=== PATIENT | male | born 1990 | race Caucasian/White ===

== ENCOUNTER → 2021-10-14 10:55 | Outpatient (CLI) | payer SELFPAY ==
[2021-10-14 14:23] LABS: Influenza Control Positive
[2021-10-14 20:43] LABS: SARS-CoV-2 RNA PCR Negative
== END ==
PROVIDERS: PCP Family Medicine; Visit Provider Family Medicine
DX: J06.9 Acute upper respiratory infection, unspecified (principal); Z20.822 Contact with and (suspected) exposure to COVID-19
CPT/HCPCS: 87804; C9803; U0003; U0005

== ENCOUNTER 2022-01-16 00:42 | Day surgery (SDC) | payer OTHER, SELFPAY ==
[2021-12-16 09:04] VITALS: BMI 34.7
[2022-01-04 14:42] VITALS: BMI 33.5
[2022-01-16 12:26] VITALS: BP 136/86; PULSE 78; RESP 16; TEMP 36.3; O2SAT 100; BMI 33.6
[2022-01-16] MEDS: LACTATED RINGERS 1,000 ML 150 ML IV CONT (12:33)
--- NOTE | 2022-01-16 12:37 | WPDGICN ---
Assessment and Plan Assessment and plan (1) Dysphagia: Code(s): R13.10 - Dysphagia, unspecified Status: Acute Assessment and Plan: EGD with possible biopsy or dilatation or cautery. GI Consult Note Consult date/time: 01/16/22 12:37 HPI: Red Mclaughlin is a 31 year old male With dysphagia for pills and solid food. Feels as though things are getting stuck in his mid esophagus. This is been going on for several months. He has had no weight loss Review of Systems Review of Systems: All systems reviewed & are unremarkable except as noted in HPI and below PMFSH Past Medical History Medical History Acute serous otitis media, right ear ADHD, predominantly inattentive type Anxiety BMI 35.0-35.9,adult Chronic anxiety Dysphagia Elevated blood pressure reading without diagnosis of hypertension Elevated liver enzymes (04/27/21) ALT slightly elevated at 48 with AST normal at 22 on 04/27/2021 IBS (irritable bowel syndrome) Irritable bowel syndrome with diarrhea Mixed hyperlipidemia Total cholesterol 234, triglycerides 279, HDL 29, LDL 159 on 04/27/2021 Obesity (BMI 30.0-34.9) Obstructive sleep apnea Otitis media of left ear Seasonal allergic rhinitis URI (upper respiratory infection) Vitamin B12 deficiency anemia (04/27/21) vitamin B12 slightly low at 316 with goal greater than 400 on 04/27/2021 Surgical History Surgical History History of lumbar fusion (~2013) Family History Family History Mother IBS (irritable bowel syndrome) Father Diabetes mellitus Hypertension Acid reflux Grandparent Hypertension Grandparent Diabetes mellitus Heart disease Hypertension Grandparent Diabetes mellitus Heart disease Grandparent Hypertension Afib Sibling Asthma Social History Social History Smoking status: Never smoker Alcohol intake: never Substance use: never Living arrangements: alone Gender identity (if verbalized by the patient): Male Sexual Orientation (if Verbalized by the Patient): Straight or Heterosexual Spiritual care concerns: No Agree to blood products: Yes Meds Home Medications and Allergies Home Medications Medication Instructions Recorded Confirmed Type escitalopram oxalate 10 mg tablet 10 mg PO DAILY #30 tablet 07/12/21 01/16/22 Rx cetirizine 10 mg tablet 10 mg PO DAILY 10/21/21 01/16/22 History fluticasone propionate [Flonase 1 spray INTRANASAL BID PRN 01/04/22 01/16/22 History Allergy Relief] Allergies Allergy/AdvReac Type Severity Reaction Status Date / Time amoxicillin Allergy Rash Verified 01/16/22 12:25 cefixime [From Suprax] Allergy Rash Verified 01/16/22 12:25 sulfamethoxazole Allergy Rash Verified 01/16/22 12:25 [From Septra] trimethoprim [From Septra] Allergy Rash Verified 01/16/22 12:25 Vital Signs Vital Signs - 24 hr 01/16/22 12:26 Temperature 36.3 C L Pulse Rate 78 Respiratory Rate 16 Blood Pressure 136/86 Pulse Oximetry 100 Exam Const: General: alert Orientation/consciousness: patient oriented x3 Resp: Auscultation: clear to auscultation bilaterally Cardio: Rhythm: regular rhythm GI: GI Palp: Yes Soft to palpation and No Tenderness to palpation present (GI) Neuro: General: patient oriented x3
--- NOTE | 2022-01-16 12:42 | WPDANESEPPF ---
Anes - Initial Pre Proc Eval Procedure: Operation Date: 01/16/22 13:30 Proposed Procedures p Esophagogastroduodenoscopy - Rafiq Bragg MD Date/Time: 01/16/22 12:42 Surgeon: Rafiq Bragg MD Pre Op Diagnosis: dysphagia Patient Data Age: 31 Gender: M Height: 1.78 m Weight: 106.4 kg Last Vital Signs Temp 97.4 F L 01/16/22 12:26 Pulse 78 01/16/22 12:26 Resp 16 01/16/22 12:26 BP 136/86 01/16/22 12:26 Pulse Ox 100 01/16/22 12:26 Allergies Allergy/AdvReac Type Severity Reaction Status Date / Time amoxicillin Allergy Rash Verified 01/16/22 12:25 cefixime [From Suprax] Allergy Rash Verified 01/16/22 12:25 sulfamethoxazole Allergy Rash Verified 01/16/22 12:25 [From Septra] trimethoprim [From Septra] Allergy Rash Verified 01/16/22 12:25 Home Medications Medication Instructions Recorded Confirmed Type escitalopram oxalate 10 mg tablet 10 mg PO DAILY #30 tablet 07/12/21 01/16/22 Rx cetirizine 10 mg tablet 10 mg PO DAILY 10/21/21 01/16/22 History fluticasone propionate [Flonase 1 spray INTRANASAL BID PRN 01/04/22 01/16/22 History Allergy Relief] Patient hx anesthesia problems: none Family hx anesthesia problems: none Results Review: All pre-operative results and documents have been reviewed as part of the pre-operative evaluation. [facility] Past Medical History Medical History Acute serous otitis media, right ear ADHD, predominantly inattentive type Anxiety BMI 35.0-35.9,adult Chronic anxiety Dysphagia Elevated blood pressure reading without diagnosis of hypertension Elevated liver enzymes (04/27/21) ALT slightly elevated at 48 with AST normal at 22 on 04/27/2021 IBS (irritable bowel syndrome) Irritable bowel syndrome with diarrhea Mixed hyperlipidemia Total cholesterol 234, triglycerides 279, HDL 29, LDL 159 on 04/27/2021 Obesity (BMI 30.0-34.9) Obstructive sleep apnea Otitis media of left ear Seasonal allergic rhinitis URI (upper respiratory infection) Vitamin B12 deficiency anemia (04/27/21) vitamin B12 slightly low at 316 with goal greater than 400 on 04/27/2021 Surgical History Surgical History History of lumbar fusion (~2013) Family History Family History Mother IBS (irritable bowel syndrome) Father Diabetes mellitus Hypertension Acid reflux Grandparent Hypertension Grandparent Diabetes mellitus Heart disease Hypertension Grandparent Diabetes mellitus Heart disease Grandparent Hypertension Afib Sibling Asthma Social History Social History Smoking status: Never smoker Alcohol intake: never Substance use: never Living arrangements: alone Gender identity (if verbalized by the patient): Male Sexual Orientation (if Verbalized by the Patient): Straight or Heterosexual Spiritual care concerns: No Agree to blood products: Yes Anes - Eval Final PreProcedure Day of Procedure 01/16/22 12:42 Patient weight: obese Heart: regular rate and rhythm Airway: Mallampati scale class II Neurological: alert and oriented Last oral intake: >/= 8 hours ASA classification: III Emergent: no Anesthetic plan: proceed Anesthesia type and monitoring: general GIVS and standard monitoring Results Review: All pre-operative results and documents have been reviewed as part of the pre-operative evaluation. Informed Consent: The patient's anesthetic plan and its attendant risks and benefits were discussed with the patient/family/POA. Questions were solicited and answers provided to the satisfaction of the patient/family/POA.
[2022-01-16 13:38] VITALS: BP 108/75; PULSE 86; RESP 16; O2SAT 100
== END 2022-01-16 14:02 | disposition home or self-care (01) ==
PROVIDERS: PCP Family Medicine; Visit Provider Internal Medicine Gastroenterology
PROC: 0DJ08ZZ Inspection of Upper Intestinal Tract, Via Natural or Artificial Opening Endoscopic (ICD-10-PCS; CPT 43235; principal; 2022-01-16 13:30)
DX: K22.2 Esophageal obstruction (principal); F41.9 Anxiety disorder, unspecified; Z98.1 Arthrodesis status; E66.9 Obesity, unspecified; Z68.33 Body mass index [BMI] 33.0-33.9, adult
CPT/HCPCS: 43249; 88305; C1726; J2704; J7120

== ENCOUNTER 2022-04-03 01:58 | Day surgery (SDC) | payer OTHER, SELFPAY ==
[2022-03-23 10:46] VITALS: BMI 34.0
--- NOTE | 2022-04-03 11:47 | WPDANESEPPF ---
Anes - Initial Pre Proc Eval Procedure: Operation Date: 04/03/22 13:30 Proposed Procedures p Esophagogastroduodenoscopy - Rafiq Bragg MD Date/Time: 04/03/22 11:47 Surgeon: Rafiq Bragg MD Pre Op Diagnosis: eosinophilic esophagitis Patient Data Age: 31 Gender: M Height: 1.75 m Weight: 104.5 kg Allergies Allergy/AdvReac Type Severity Reaction Status Date / Time amoxicillin Allergy Rash Verified 04/03/22 12:13 cefixime [From Suprax] Allergy Rash Verified 04/03/22 12:13 sulfamethoxazole Allergy Rash Verified 04/03/22 12:13 [From Septra] trimethoprim [From Septra] Allergy Rash Verified 04/03/22 12:13 Home Medications Medication Instructions Recorded Confirmed Type escitalopram oxalate 10 mg tablet 10 mg PO DAILY #30 tabs 07/12/21 03/24/22 Rx (Lexapro) cetirizine 10 mg tablet 10 mg PO DAILY 10/21/21 03/24/22 History fluticasone propionate 50 1 spray intranasal BID PRN Allergy 01/04/22 03/24/22 History mcg/actuation nasal Symptoms spray,suspension (Flonase Allergy Relief) omeprazole 20 mg tablet,delayed 40 mg PO DAILY 01/17/22 03/24/22 History release buspirone 15 mg tablet 15 mg PO BID #60 tabs 02/02/22 03/24/22 Rx amitriptyline 10 mg tablet 10 mg PO QHS #30 tabs 02/09/22 03/24/22 Rx Patient hx anesthesia problems: none Family hx anesthesia problems: none Results Review: All pre-operative results and documents have been reviewed as part of the pre-operative evaluation. [facility] Past Medical History Medical History (Updated 04/03/22 @ 12:37 by Rafiq Bragg MD) Acute serous otitis media, right ear ADHD, predominantly inattentive type Anxiety Benign esophageal stricture (01/17/22) severe benign esophageal stricture at the [facility] on EGD on 01/17/2022, dilated BMI 35.0-35.9,adult Chronic anxiety Dysphagia Elevated blood pressure reading without diagnosis of hypertension Elevated liver enzymes (04/27/21) ALT slightly elevated at 48 with AST normal at 22 on 04/27/2021 GERD (gastroesophageal reflux disease) IBS (irritable bowel syndrome) Irritable bowel syndrome with diarrhea Mixed hyperlipidemia Total cholesterol 234, triglycerides 279, HDL 29, LDL 159 on 04/27/2021 Obesity (BMI 30.0-34.9) Obstructive sleep apnea Otitis media of left ear Seasonal allergic rhinitis URI (upper respiratory infection) Vitamin B12 deficiency anemia (04/27/21) vitamin B12 slightly low at 316 with goal greater than 400 on 04/27/2021 Surgical History Surgical History History of lumbar fusion (~2013) Family History Family History Mother IBS (irritable bowel syndrome) Father Diabetes mellitus Hypertension Acid reflux Grandparent Hypertension Grandparent Diabetes mellitus Heart disease Hypertension Grandparent Diabetes mellitus Heart disease Grandparent Hypertension Afib Sibling Asthma Social History Social History Smoking status: Never smoker Alcohol intake: never Substance use: never Substance use type: does not use Living arrangements: with family Gender identity (if verbalized by the patient): Male Sexual Orientation (if Verbalized by the Patient): Straight or Heterosexual Spiritual care concerns: No Agree to blood products: Yes Anes - Eval Final PreProcedure Day of Procedure 04/03/22 11:47 Patient weight: obese Heart: regular rate and rhythm Lungs: clear to auscultation Airway: Mallampati scale class II Neurological: alert and oriented Last oral intake: >/= 8 hours ASA classification: III Emergent: no Anesthetic plan: proceed Anesthesia type and monitoring: general GIVS and standard monitoring Results Review: All pre-operative results and documents have been reviewed as part of the pre-operative evaluation. Informed Consent: Th
[2022-04-03 12:15] VITALS: BP 114/78; PULSE 71; RESP 20; TEMP 36.4; O2SAT 100
[2022-04-03] MEDS: LACTATED RINGERS 1,000 ML 150 ML IV CONT (12:32)
--- NOTE | 2022-04-03 12:35 | PM.HPGS ---
History of Present Illness History of Present Illness Consent: Risks, benefits, and alternatives have been discussed and questions answered. Patient agrees to proceed with procedure. Chief complaint: eosinophilic esophagitis Narrative: Red Mclaughlin is a 31 year old male With had severe dysphagia and was found have a tight stricture at the gastroesophageal junction 8 weeks ago. I was able to dilated only up to 13.5 mm. He also has been found to have eosinophilic esophagitis, with 80 eosinophils per high-power field in the proximal esophagus and 70 more distally. he has been taking omeprazole 40 mg per day and is doing much better so far. Review of Systems Review of Systems: All systems reviewed & are unremarkable except as noted in HPI and below PMFSH Past Medical History Medical History Acute serous otitis media, right ear ADHD, predominantly inattentive type Anxiety Benign esophageal stricture (01/17/22) severe benign esophageal stricture at the [facility] on EGD on 01/17/2022, dilated BMI 35.0-35.9,adult Chronic anxiety Dysphagia Elevated blood pressure reading without diagnosis of hypertension Elevated liver enzymes (04/27/21) ALT slightly elevated at 48 with AST normal at 22 on 04/27/2021 GERD (gastroesophageal reflux disease) IBS (irritable bowel syndrome) Irritable bowel syndrome with diarrhea Mixed hyperlipidemia Total cholesterol 234, triglycerides 279, HDL 29, LDL 159 on 04/27/2021 Obesity (BMI 30.0-34.9) Obstructive sleep apnea Otitis media of left ear Seasonal allergic rhinitis URI (upper respiratory infection) Vitamin B12 deficiency anemia (04/27/21) vitamin B12 slightly low at 316 with goal greater than 400 on 04/27/2021 Surgical History Surgical History History of lumbar fusion (~2013) Family History Family History Mother IBS (irritable bowel syndrome) Father Diabetes mellitus Hypertension Acid reflux Grandparent Hypertension Grandparent Diabetes mellitus Heart disease Hypertension Grandparent Diabetes mellitus Heart disease Grandparent Hypertension Afib Sibling Asthma Social History Social History Smoking status: Never smoker Alcohol intake: never Substance use: never Substance use type: does not use Living arrangements: with family Gender identity (if verbalized by the patient): Male Sexual Orientation (if Verbalized by the Patient): Straight or Heterosexual Spiritual care concerns: No Agree to blood products: Yes Meds Home Medications and Allergies Home Medications Medication Instructions Recorded Confirmed Type escitalopram oxalate 10 mg tablet 10 mg PO DAILY #30 tabs 07/12/21 03/24/22 Rx (Lexapro) cetirizine 10 mg tablet 10 mg PO DAILY 10/21/21 03/24/22 History fluticasone propionate 50 1 spray intranasal BID PRN Allergy 01/04/22 03/24/22 History mcg/actuation nasal Symptoms spray,suspension (Flonase Allergy Relief) omeprazole 20 mg tablet,delayed 40 mg PO DAILY 01/17/22 03/24/22 History release buspirone 15 mg tablet 15 mg PO BID #60 tabs 02/02/22 03/24/22 Rx amitriptyline 10 mg tablet 10 mg PO QHS #30 tabs 02/09/22 03/24/22 Rx Allergies Allergy/AdvReac Type Severity Reaction Status Date / Time amoxicillin Allergy Rash Verified 04/03/22 12:13 cefixime [From Suprax] Allergy Rash Verified 04/03/22 12:13 sulfamethoxazole Allergy Rash Verified 04/03/22 12:13 [From Septra] trimethoprim [From Septra] Allergy Rash Verified 04/03/22 12:13 Vital Signs Vital Signs - 24 hr 04/03/22 12:15 Temperature 36.4 C Pulse Rate 71 Respiratory Rate 20 Blood Pressure 114/78 Pulse Oximetry 100 Oxygen Delivery Room Air Exam Const: General: alert Orientation/consciousne
[2022-04-03 13:27] VITALS: BP 119/80; PULSE 97; RESP 18
[2022-04-03 13:37] VITALS: BP 120/67; PULSE 71; RESP 20
[2022-04-03 13:47] VITALS: BP 120/81; PULSE 72; RESP 20
== END 2022-04-03 13:56 | disposition home or self-care (01) ==
PROVIDERS: PCP Family Medicine; Visit Provider Internal Medicine Gastroenterology
PROC: 0DJ08ZZ Inspection of Upper Intestinal Tract, Via Natural or Artificial Opening Endoscopic (ICD-10-PCS; CPT 43235; principal; 2022-04-03 13:30)
DX: R13.19 Other dysphagia (principal); K22.2 Esophageal obstruction; K21.00 Gastro-esophageal reflux disease with esophagitis, without bleeding; F90.9 Attention-deficit hyperactivity disorder, unspecified type; F41.9 Anxiety disorder, unspecified; R03.0 Elevated blood-pressure reading, without diagnosis of hypertension; R74.01 Elevation of levels of liver transaminase levels; K58.0 Irritable bowel syndrome with diarrhea; E78.5 Hyperlipidemia, unspecified; E78.2 Mixed hyperlipidemia; G47.33 Obstructive sleep apnea (adult) (pediatric); E66.9 Obesity, unspecified; Z68.34 Body mass index [BMI] 34.0-34.9, adult; D51.9 Vitamin B12 deficiency anemia, unspecified
CPT/HCPCS: 43249; 43239; 88305; 88313; C1726; J2001; J2704; J7120

== ENCOUNTER 2022-07-03 07:52 | Outpatient (CLI) | payer OTHER, SELFPAY ==
--- NOTE | ~2022-07-03 | US_ITS ---
US right upper quadrant INDICATION: Abnormal liver function tests. PROCEDURE: Realtime right upper abdominal ultrasound. COMPARISON: Upper GI dated 04/13/2005 FINDINGS: The pancreas is normal without focal mass or pancreatic ductal dilation. Liver echotexture is increased, consistent with fatty infiltration. There is normal directional flow in the portal ve in. The gallbladder is normal without stones, gallbladder wall thickening or pericholecystic fluid. Comm on bile duct measures 4.5 mm. No sonographic Sanders's sign. IMPRESSION: 1: Hepatic steatosis. Reviewed, dictated and finalized at location A. IMPRESSION: 1: Hepatic steatosis.
--- NOTE | ~2022-07-03 | CT_ITS ---
EXAMINATION: CT IAC/mastoids BI wo con DATE: 07/03/2022 08:42 INDICATION: Conductive hearing loss. Bilateral tinnitus. TECHNIQUE: Computed tomography (CT) of the temporal bones was performed without intravenous contrast. Automated exposure control and iterative reconstruction technique were employed. The dose-length pro duct was 272.27 mGy-cm. COMPARISON: None FINDINGS: There is mucosal thickening in the paranasal sinuses. RIGHT TEMPORAL BONE: The internal auditory canal, cochlea, vestibule, semicircular canals, vestibular aqueduct, carotid ca nal, and jugular bulb are normal. There is opacification of much of the tympanic cavity. There is opa cification of all of the mastoid air cells. There are erosions of scutum and the ossicles. There is d ehiscence of tegmen tympani and tegmen mastoideum. LEFT TEMPORAL BONE: The internal auditory canal, cochlea, vestibule, semicircular canals, vestibular aqueduct, carotid ca nal, jugular bulb, facial nerve course, ossicles, Prussak space, scutum, and tympanic membrane are no rmal. There is a left mastoid effusion. There is a small volume of cerumen in left external auditory canal. IMPRESSION: 1. Opacification of much of the right tympanic cavity with erosions of bone, consistent with chronic otitis media or less likely cholesteatoma. 2. Left mastoid effusion. Reviewed, dictated and finalized at location A. IMPRESSION: 1. Opacification of much of the right tympanic cavity with erosions of bone, co nsistent with chronic otitis media or less likely cholesteatoma. 2. Left mastoid effusion.
== END 2022-07-03 07:53 | disposition home or self-care (01) ==
LOC: ANHIMG 08:04
PROVIDERS: PCP Family Medicine; Visit Provider Nurse Practitioner Family
DX: H90.0 Conductive hearing loss, bilateral (principal); H93.13 Tinnitus, bilateral; H69.82 Other specified disorders of Eustachian tube, left ear; H92.03 Otalgia, bilateral; K76.0 Fatty (change of) liver, not elsewhere classified
CPT/HCPCS: 70480; 76705

== ENCOUNTER 2023-06-29 12:00 | Emergency (ER) | payer OTHER, SELFPAY ==
[2023-06-29 12:07] VITALS: BP 138/89; PULSE 81; RESP 18; TEMP 36.4; O2SAT 99
--- NOTE | 2023-06-29 12:09 | ED.URI ---
HPI - URI/Sore Throat General Chief Complaint: Upper Respiratory Infection Stated Complaint: Sore Throat,Rt Ear Irritation,Headache,Cough Time Seen by Provider: 06/29/23 12:09 Source: patient Mode of arrival: ambulatory Limitations: no limitations History of Present Illness HPI Narrative: 33 year male presents with nasal congestion, sore throat, cough for the past 6 days. Reports that sore throat, ear pain improving. Cough is lingering. Saw his ENT 2 days ago to be checked for infection and sinus infection and was told symptoms were viral, no ear infection. Patient here for work note. Missed several days of work. Works at [employer] and will need work Comp paperwork filled out due to point system. States his primary care physician is going to fill out the workman's comp paperwork just needs a work note from last. Chest pain or shortness of breath. Taking [id number] Tylenol cold medicine to treat symptoms. All systems reviewed and negative except as noted above. Related Data Home Medications Medication Instructions Recorded Confirmed fluticasone propionate 50 1 spray intranasal BID PRN Allergy 01/04/22 06/29/23 mcg/actuation nasal Symptoms spray,suspension (Flonase Allergy Relief) omeprazole 20 mg tablet,delayed 40 mg PO DAILY 01/17/22 06/29/23 release cetirizine 10 mg tablet 10 mg PO DAILY PRN allergy symptoms 06/13/23 06/29/23 Allergies Allergy/AdvReac Type Severity Reaction Status Date / Time amoxicillin Allergy Rash Verified 06/29/23 12:05 cefixime [From Suprax] Allergy Rash Verified 06/29/23 12:05 sulfamethoxazole Allergy Rash Verified 06/29/23 12:05 [From Septra] trimethoprim [From Septra] Allergy Rash Verified 06/29/23 12:05 Review of Systems Review of Systems: CONSTITUTIONAL: Denies fever, chills, or sweats. EYES: Denies visual changes, redness, or discharge. ENT: Reports rhinorrhea, congestion, sore throat, or otalgia. CARDIOVASCULAR: Denies chest pain, palpitations, or edema. RESPIRATORY: reports cough. Denies dyspnea. GASTROINTESTINAL: Denies abdominal pain, nausea, vomiting, or diarrhea. GENITOURINARY: Denies dysuria or hematuria. SKIN: Denies rash or itching. MUSCULOSKELETAL: Denies back pain, joint pain, or myalgia. NEUROLOGIC: Denies headache, numbness, or weakness. PSYCHIATRIC: Denies anxiety or depression. All other systems reviewed are negative, except as documented in HPI. [facility] Past Medical History Medical History (Updated 06/29/23 @ 12:23 by Estela Henry NP) Acute serous otitis media, right ear ADHD, predominantly inattentive type Anxiety Benign esophageal stricture (01/17/22) severe benign esophageal stricture at the [facility] on EGD on 01/17/2022, dilated. Repeat EGD on 04/03/2022 with dilatation of the esophageal stricture. BMI 35.0-35.9,adult BMI 36.0-36.9,adult Chronic anxiety TSH normal at 2.47 on 05/26/2022. Dysphagia Elevated blood pressure reading without diagnosis of hypertension Elevated liver enzymes (04/27/21) ALT slightly elevated at 48 with AST normal at 22 on 04/27/2021. AST 34 with ALT elevated at 70 on 05/26/2022. Eosinophilic esophagitis (~2021) GERD (gastroesophageal reflux disease) Hypertension IBS (irritable bowel syndrome) Irritable bowel syndrome with diarrhea Mixed hyperlipidemia Total cholesterol 234, triglycerides 279, HDL 29, LDL 159 on 04/27/2021. Total cholesterol 250 with triglycerides 653 and HDL low at 28 with LDL not calculated with total to HDL ratio elevated at 8.9 on 05/26/2022. Obesity (BMI 30-39.9) Obesity (BMI 30.0-34.9) Obstructive sleep apnea Otitis media of left ear Seasonal allergic rhinitis URI (upper respiratory infection) Vitamin B12 deficiency anemia (04/27/21) vitamin B12 slightly low at 316 with goal greater than 400 on 04/27/2021. Vitamin B12 739 on 05/26/2022. Surgical History Surgical History History of lumbar fusion (~2013) Family
== END 2023-06-29 12:27 | disposition home or self-care (01) ==
PROVIDERS: Emergency Provider Nurse Practitioner Family; PCP Family Medicine
DX: J06.9 Acute upper respiratory infection, unspecified (principal); I10 Essential (primary) hypertension; E78.2 Mixed hyperlipidemia; Z79.899 Other long term (current) drug therapy
CPT/HCPCS: 99211; G0463